=== PATIENT | male | born 1980 | race Caucasian/White ===

== ENCOUNTER 2018-09-29 18:16 | Emergency (ER) | payer OTHER ==
[~2018-09-29] VITALS: Ht 182.9 cm; Wt 68.0 kg
--- OUTSIDE RECORDS SUMMARY | 2018-09-29 18:23 | XMS REPORT ---
Author Author PERRI OAKLEY Organization [employer] Address Unknown Phone Unavailable Care Team Providers Care Rn Primary Care Name Role Phone PERRI OAKLEY CP Unavailable Allergies No Known Allergies Problems Problem Type Condition ICD-9 Code Onset Dates Condition Status Assessment Dental examination V72.2 Active Medications No Known Medications Procedures Procedure Coding System Code Date Billing Notes on claim CPT-4 EC109 October 25, 2014 Results No Known Results Summary Purpose [employer] Submission
--- OUTSIDE RECORDS SUMMARY | 2018-09-29 18:23 | XMS REPORT ---
Author Author TIERNEY LIVE [facility] [employer] Address Unknown Phone Unavailable Care Team Providers Care Art Educator Name Role Phone TIERNEY LIVE Unavailable Allergies No Known Allergies Problems Problem Type Condition ICD-9 Code Onset Dates Condition Status Assessment Dental examination V72.2 Active Medications No Known Medications Procedures Procedure Coding System Code Date PRDONTAL SCAL&ROOT PLAN 1-3 TEETH CPT-4 D4342 November 17, 2014 PRDONTAL SCAL&ROOT PLAN 1-3 TEETH CPT-4 D4342 November 17, 2014 Results No Known Results Summary Purpose [employer] Submission
--- NOTE | 2018-09-29 18:40 | ED Upper Extremity ---
General Stated Complaint: RT HAND INJ History of Present Illness Date Seen by Provider: Sep 29, 2018 Time Seen by Provider: 18:20 Onset: just prior to arrival Severity: moderate Pain/Injury Location: right hand The patient is a pleasant 38-year-old male presents for evaluation of an injury to the right hand. He states that he was at work and got his hand stuck in a printing press. He has an injury to the right first digit as well as the right third digit. Both of these injuries are superficial lacerations on the flexor surface. He has some minor abrasions to the dorsal aspect of the hand without laceration or significant injury. He has full range of motion of the hand without any apparent discomfort and states that he does not believe that he fractured anything and does not need an x-ray to be performed. He states he actually did something similar to the opposite hand recently. He is up-to-date with tetanus. He did not injure anything else and has no other complaints. He is alert and oriented 4, calm, and appears to be in no distress. He states that his workplace is aware of injury. Allergies and Home Medications Allergies Coded Allergies: No Known Drug Allergies (Unverified , 09/29/18) Patient Home Medication List Home Medication List Reviewed: Yes Review of Systems Constitutional: no symptoms reported EENTM: see HPI Respiratory: no symptoms reported Cardiovascular: no symptoms reported Gastrointestinal: no symptoms reported Genitourinary: no symptoms reported Musculoskeletal: other (lacerations to the right hand first and third digits) Skin: other (lacerations to the right hand) Psychiatric/Neurological: No Symptoms Reported All Other Systems Reviewed Negative Unless Noted: Yes Past Fybtglh-Eevkga-Kgsrvk Hx Past Med/Social Hx: Reviewed Nursing Past Med/Soc Hx, Reviewed and Corrections made Patient Social History Recent Foreign Travel: No Contact w/Someone Who Travel: No Physical Exam Vital Signs Vital Signs - First Documented 09/29/18 18:25 Temp 97.6 Pulse 98 Resp 20 B/P (MAP) 132/97 (109) Pulse Ox 99 O2 Delivery Room Air Capillary Refill : Height, Weight, BMI Height: '" Weight: lbs. oz. kg; BMI Method: General Appearance: WD/WN, no apparent distress HEENT: PERRL/EOMI, normal ENT inspection, TMs normal Neck: non-tender, full range of motion Cardiovascular: regular rate, rhythm, no edema, no JVD Respiratory: chest non-tender, lungs clear Elbow/Forearm: normal inspection, non-tender, no evidence of injury, normal ROM Wrist: Yes normal inspection, Yes non-tender, Yes no evidence of injury, Yes normal ROM Hand: laceration (there is a laceration to the right first digit on the flexor surface near the interphalangeal joint, approximately 2.5 cm in length, no active bleeding, no apparent tendon injury, full range of motion is present, there is some loss of sensation on the flexor surface of the thumb distal to the laceration prior to any repair, there is another laceration to the right third finger near the DIP joint on the flexor surface which is approximately 1.5 cm in length, there is no active bleeding or apparent vascular injury, there is no apparent tendon injury as there is full range of motion of the finger when isolated in all motions, there is no apparent sensory deficit, CMS intact distal to this laceration) 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, no motor/sensory deficits, alert, normal mood/affect, oriented x 3 Skin: normal color, warm/dry, other (lacerations to right hand as previously described) Procedures/Interventions Wound Location: Upper Extremities Other Wound Location right hand - 1st and 3rd digits Wound Length (cm): 4 Wound's Depth, Shape: flap Wound Explored: clean Irrigated w/ Saline (ccs): 1000 Anesthesia: 1% Lidocaine Volume Anesthetic (ccs): 6 Suture: Ethlion Suture Size: 5-0 Number of Sutures: 11 Layer Closure?: 1 Progress/Results/Core Measures Results/Orders My Orders Orders - ANN-MARIE ZARATE DO Lidocaine 2% Injection 20 Ml (Xylocaine (09/29/18 19:00) Lidocaine 1% Inj 20 Ml (Xylocaine 1% Inj (09/29/18 19:00) Lidocaine 1% Inj 20 Ml (Xylocaine 1% Inj (09/29/18 18:52) Medications Given in ED Current Medications Medications Dose Ordered Sig/Roddy Route Start Time Stop Time Status Last Admin Dose Admin Lidocaine HCl 20 ml ONCE ONCE INJ 09/29/18 19:00 09/29/18 19:01 DC 09/29/18 19:00 20 ML Vital Signs/I&O 09/29/18 18:25 Temp 97.6 Pulse 98 Resp 20 B/P (MAP) 132/97 (109) Pulse Ox 99 O2 Delivery Room Air Progress Progress Note : Progress Note @1934 - digital block performed with 1% lidocaine to both first and third fingers of the right hand. 6 sutures placed in the first finger and 5 sutures placed in the third finger. The patient tolerated the procedure very well. Advised the patient to have the sutures removed in 7-10 days and to return to the emergency department immediately for any concerns for infection. Departure Impression Primary Impression: Laceration of right middle finger Additional Impression: Laceration of right thumb Disposition: 01 HOME, SELF-CARE Condition: Stable Departure-Patient Inst. Decision time for Depature: 19:35 Referrals: SELFTHOM MD (PCP) Primary Care Physician Patient Instructions: Laceration Repair With Stitches (DC) Add. Discharge Instructions: Follow-up with your doctor in the next 2-3 days for wound check and in 7-10 days from today to have her stitches removed. Return to the emergency department immediately for concerns of infection such as drainage from wound, redness, or increasing pain. Take Tylenol or ibuprofen at home for pain relief. Work/School Note: Work Release Form Date Seen in the Emergency Department: Sep 29, 2018 Return to Work: Sep 29, 2018 Restrictions: Follow Up With [facility] Other Restrictions Listed Below: Restricted use of the right hand for the next 2 weeks/until cleared by PCP ANN-MARIE ZARATE DO Sep 29, 2018 18:39
[2018-09-29] MEDS ORDERED: LIDOCAINE 1% INJ 20 ML 20 ML VIAL ONE (18:52)
[2018-09-29] MEDS ORDERED: LIDOCAINE 2% 20 ML (XYLOCAINE) VIAL INJ ONE (19:00)
[2018-09-29] MEDS ORDERED: LIDOCAINE 1% INJ 20 ML 20 ML VIAL INJ ONE (19:00)
--- NOTE | 2018-09-29 19:06 | NUR ---
Report was given to ARMAND Liao at this time. Care was transferred.
[2018-09-29 20:05] VITALS: BP 132/83
== END 2018-09-29 20:11 | disposition home or self-care (01) ==
LOC: EDUNIT# 18:16 → ER FS 18:19
DX: S61.213A Laceration without foreign body of left middle finger without damage to nail, initial encounter (principal); S61.011A Laceration without foreign body of right thumb without damage to nail, initial encounter; W31.89XA Contact with other specified machinery, initial encounter; Y92.59 Other trade areas as the place of occurrence of the external cause; Y99.0 Civilian activity done for income or pay
CPT/HCPCS: 12001